=== PATIENT | male | born 1995 | race Caucasian/White ===

== ENCOUNTER 2022-07-06 19:23 | Emergency (ER) | payer SELFPAY ==
--- NOTE | 2022-07-06 20:00 | NUR ---
Patient was called to be triaged but was not present in the waiting room or outside of ER.
--- NOTE | 2022-07-06 21:00 | NUR ---
Patient was called to be triaged but was not present in the waiting room or outside of ER.
--- NOTE | 2022-07-06 21:30 | NUR ---
Patient was called to be triaged but was not present. PATIENT WAS NOT TRIAGED OR SEEN BY [facility].
== END 2022-07-06 21:30 | disposition left against medical advice (07) ==
LOC: ER 19:29
DX: Z53.21 Procedure and treatment not carried out due to patient leaving prior to being seen by health care provider (principal)